=== PATIENT | female | born 1935 | race Caucasian/White ===

== ENCOUNTER 2020-10-29 05:55 | Day surgery (SDC) | payer MEDICARE, BC ==
[2020-10-29] MEDS ORDERED: Midazolam 1 MG/ML 2 ML SDV IV ONE ×3 (05:56→07:10)
[2020-10-29] MEDS ORDERED: fentaNYL 100 MCG/2 ML SDV IV ONE ×3 (05:56→07:07)
[2020-10-29] MEDS ORDERED: Dextrose 5%-0.45% NaCl 1,000 ML IV SCH (06:00)
[2020-10-29] MEDS ORDERED: fentaNYL 100 MCG/2 ML SDV ONE (06:13)
[2020-10-29] MEDS ORDERED: Midazolam 1 MG/ML 2 ML SDV ONE (06:13)
--- NOTE | 2020-10-29 08:08 | OR ---
DATE: 10/29/2020 PROCEDURE: Esophagogastroduodenoscopy and multiple pinch biopsies. INSTRUMENT USED: GIF-HQ190 Olympus video panendoscope. PREMEDICATIONS: No oral or topical anesthesia used. Fentanyl 100 mcg intravenous, Versed 1.5 mg intravenous, nasal O2 cannula. The procedure was done under pulse oximetry, BP recording, and shelter monitor. INDICATIONS: The patient with persistent heartburn, regurgitation, and associated throat discomfort, unexplained and not responsive to medical measures, on long-term aspirin. Esophagogastroduodenoscopy is performed for detection of any active erosive lesions, Tillman esophagus and/or malignancy also under consideration, H pylori status to be determined, endoscopic hemostasis therapy if needed. PROCEDURE IN DETAIL: The scope was passed with ease. Adequate visualization of the esophagus was made from proximal to distal areas. No upper esophageal lesions identified. No distal esophageal stricture. No uphill or downhill esophageal varices. No Trudy-Hernandez tear. No evidence of erosive esophagitis by Newbury criteria. No esophageal polyp or tumor mass identified. Z-line was seen at around 39 cm distal to the oral verge. Small sliding hiatal hernia was noted. No proximal gastric varices noted. Gastric fundus examination by retroflexion showed diminutive benign-appearing polyps. No gastric ulcer, malignant mass, or vascular ectasia identified. Scattered gastric antral erosions were noted without bleeding from them. Duodenal bulb showed no ulcer. Visualized second part of the duodenum was unremarkable. Multiple pinch biopsies were taken from the gastric antrum and proximal body and sent for PyloriTek test for H pylori, and if negative in an hour, the tissue is to be sent for histopathology. No bleeding was noted from any of the visualized areas at the completion of examination. Photographs were taken of the duodenal bulb, gastric antrum, fundus, and distal esophagus. IMPRESSION: 1. Small sliding hiatal hernia. 2. Diminutive gastric fundus polyps. 3. Gastric antral erosions. The patient tolerated the procedure well. [facility] /[id number]
== END 2020-10-29 09:22 | disposition home or self-care (01) ==
LOC: DL.ENDO 05:55
PROVIDERS: ATTEND Internal Medicine Gastroenterology
DX: K31.7 Polyp of stomach and duodenum (principal); K25.9 Gastric ulcer, unspecified as acute or chronic, without hemorrhage or perforation; K44.9 Diaphragmatic hernia without obstruction or gangrene; R12 Heartburn; E78.00 Pure hypercholesterolemia, unspecified; R73.9 Hyperglycemia, unspecified; F41.1 Generalized anxiety disorder; M72.0 Palmar fascial fibromatosis [Dupuytren]; E66.09 Other obesity due to excess calories; Z68.31 Body mass index [BMI] 31.0-31.9, adult
CPT/HCPCS: 87077; J2250; J3010; J7042